=== PATIENT | female | born 1960 | race Caucasian/White ===

== ENCOUNTER 2019-02-15 15:41 | Emergency (ER) | payer BC ==
[2019-02-15] MEDS ORDERED: METHYLPREDNISOLONE 125 MG INJ ONE (16:05)
[2019-02-15] MEDS ORDERED: ALBUTEROL 2.5 MG/3 ML NEB SOL ONE (16:05)
[2019-02-15] MEDS ORDERED: IPRATROPIUM BROM 0.5MG/2.5ML ONE (16:06)
[2019-02-15 16:21] LABS: Absolute Monocytes 0.4 K/uL (0.1-1.3); Absolute Neutrophil 6.8 K/uL (1.8-8.0); Basophils % 0.6 % (0-1.3); Hematocrit 37.9 % (36.0-45.0); Lymphocytes % 12.1 % (15.3-44.8); MPV 7.6 fL (7.6-11.3); Monocytes % 4.1 % (3.3-12.3); RBC Red Blood Cell Count 3.93 M/uL (3.86-4.86)
[2019-02-15 16:42] LABS: ALT/SGPT 27 U/L (12-78); AST/SGOT 26 U/L (15-37); Albumin 3.7 g/dL (3.4-5.0); Alkaline Phosphatase 114 U/L (45-117); BUN Blood Urea Nitrogen 11 mg/dL (7-18); Bicarbonate 28 mmol/L (21-32); Bilirubin Direct 0.1 mg/dL (0-0.2); Bilirubin Total 0.4 mg/dL (0.2-1.0); Glucose Level 112 mg/dL (74-106); NT PRO-BNP 102 pg/mL (<125); Potassium 3.7 mmol/L (3.5-5.1); Protein, Total 8.3 g/dL (6.4-8.2); Sodium Level 141 mmol/L (136-145); Troponin (Emerg Dept Use Only) < 0.02 ng/mL (0.0-0.045)
[2019-02-15 16:44] LABS: Protime INR 1.1
[2019-02-15] MEDS ORDERED: Magnesium Sulfate 2gm IVPB 2 G/50 ML BAG IV ONE (17:22)
[2019-02-15] MEDS ORDERED: LEVALBUTEROL 1.25 MG/3 ML NEB ONE (17:31)
--- NOTE | 2019-02-15 18:58 | RAD REPORT ---
EXAM DESCRIPTION: Zuri Single View02/15/2019 4:24 pm CLINICAL HISTORY: sob COMPARISON: 2011 FINDINGS: The lungs appear clear of acute infiltrate. The heart is normal size IMPRESSION: No acute abnormalities displayed
--- NOTE | 2019-02-15 18:58 | RAD REPORT ---
EXAM DESCRIPTION: CT - Chest For Pe Angio - 02/15/2019 6:11 pm CLINICAL HISTORY: sob COMPARISON: None. TECHNIQUE: Dynamically enhanced axial 3 mm thick images of the chest were obtained during administra tion of <100> mL Isovue 370 IV contrast. Coronal and oblique reconstruction images were generated and reviewed. Exam utilizes a protocol for optimal evaluation of pulmonary arterial tree. Maximum intensity projections 3D imaging was utilized All CT scans are performed using dose optimization technique as appropriate and may include automated exposure control or mA/KV adjustment according to patient size. FINDINGS: The opacification of the pulmonary arteries is suboptimal. A central pulmonary embolus is not seen. A thoracic aortic aneurysm is not noted. A left subclavian stent is in place A pleural effusion is not seen. A pericardial effusion is not seen. A lung consolidation is not present. Fatty liver IMPRESSION: No gross evidence of a pulmonary embolus
--- NOTE | 2019-02-15 19:07 | ER ---
Nurse's Notes [facility] Name: Gene Cox Age: 59 yrs Sex: Female : 1960 Arrival Date: 02/15/2019 Time: 15:43 Bed 24 Private MD: Diagnosis: Unspecified asthma with (acute) exacerbation Presentation: 02/15 15:44 Presenting complaint: Patient states: SOB x 2 days, hx asthma has been taking breathing sv tx but no relief. Transition of care: patient was not received from another setting of care. Onset of symptoms was February 13, 2019. Care prior to arrival: None. 15:44 Method Of Arrival: Ambulatory sv 15:44 Acuity: CAIT 3 sv 16:13 Risk Assessment: Do you want to hurt yourself or someone else? Patient reports no rv desire to harm self or others. Initial Sepsis Screen: Does the patient meet any 2 criteria? No. Patient's initial sepsis screen is negative. Does the patient have a suspected source of infection? No. Patient's initial sepsis screen is negative. Triage Assessment: 16:14 General: Appears in no apparent distress. comfortable, Behavior is calm, cooperative. rv Respiratory: Reports shortness of breath at rest Onset: The symptoms/episode began/occurred yesterday, the patient has mild shortness of breath. Historical: - Allergies: 15:46 Amoxicillin; sv - PMHx: 15:46 Asthma; sv 15:46 High Cholesterol; sv - PSHx: 15:46 leg stents; fem-fem bypass; cardiac stent; sv - Immunization history:: Adult Immunizations up to date. - Social history:: Smoking status: unknown. - Ebola Screening: : Patient negative for fever greater than or equal to 101.5 degrees Fahrenheit, and additional compatible Ebola Virus Disease symptoms Patient denies exposure to infectious person Patient denies travel to an Ebola-affected area in the 21 days before illness onset. Screenin:13 Abuse screen: Denies threats or abuse. Denies injuries from another. Nutritional rv screening: No deficits noted. Tuberculosis screening: No symptoms or risk factors identified. Fall Risk None identified. Assessment: 16:12 General: Appears in no apparent distress. comfortable, Behavior is calm, cooperative. rv Pain: Complains of pain in chest. Neuro: Level of Consciousness is awake, alert, obeys commands, Oriented to person, place, time, situation. Cardiovascular: Rhythm is regular. Respiratory: Airway is patent Respiratory effort is even, Breath sounds with wheezes bilaterally. GI: No signs and/or symptoms were reported involving the gastrointestinal system. : No signs and/or symptoms were reported regarding the genitourinary system. EENT: No signs and/or symptoms were reported regarding the EENT system. Derm: Skin is intact. Musculoskeletal: No signs and/or symptoms reported regarding the musculoskeletal system. 17:06 Reassessment: Patient appears in no apparent distress at this time. No changes from la1 previously documented assessment. Patient and/or family updated on plan of care and expected duration. Pain level reassessed. Patient is alert, oriented x 3, equal unlabored respirations, skin warm/dry/pink. Vital Signs: 15:47 BP 149 / 75; Pulse 87; Resp 26; Temp 97; Pulse Ox 98% ; Weight 90.72 kg; Height 5 ft. 5 sv in. (165.10 cm); Pain 0/10; 17:06 BP 116 / 60; Pulse 95; Resp 20; Pulse Ox 98% on R/A; la1 17:30 BP 98 / 85 LA Sitting; Pulse 107; Resp 23 S; Pulse Ox 100% on Nebulizer Mask; rv 18:00 BP 118 / 70 LA Supine; Pulse 102; Resp 21 S; Pulse Ox 100% on R/A; rv 18:30 BP 115 / 61 LA Supine; Pulse 97; Resp 18 S; Pulse Ox 95% on R/A; rv 15:47 Body Mass Index 33.28 (90.72 kg, 165.10 cm) sv ED Course: 15:43 Patient arrived in ED. mr 15:45 Triage completed. sv 15:46 Arm band placed on. sv 15:48 Carlos Gonzales PA is PHCP. cp 15:48 Carlos Masters MD is Attending Physician. cp 15:48 PHCP role handed off by Carlos Gonzales PA jr8 15:48 Fritz Villela PA is PHCP. jr8 15:49 Carlos Gonzales PA is PHCP. cp 15:49 Eddie Rojas, ZEYNEP is Primary Nurse. la1 16:00 Inserted saline lock: 20 gauge in right antecubital area, using aseptic technique. rv Blood collected. 16:14 Patient has correct armband on for positive identification. Bed in low position. Call rv light in reach. Side rails up X 1. Adult w/ patient. Pulse ox on. NIBP on. 16:23 XRAY Chest (1 view) In Process Unspecified. EDMS 17:[address] via wheelchair. eh 18:12 CT Chest For PE Angio In Process Unspecified. EDMS 19:22 No provider procedures requiring assistance completed. IV discontinued, intact, la1 bleeding controlled, No redness/swelling at site. Pressure dressing applied. Administered Medications: 15:55 Drug: Albuterol - atroVENT (3:1) (2.5 mg - 0.5 mg) 3 ml Route: Nebulizer; rv 16:38 Follow up: Response: Marked relief of symptoms rv 16:00 Drug: SOLU-Medrol 80 mg Route: IVP; Site: right antecubital; rv 16:39 Follow up: Response: Marked relief of symptoms rv 17:17 Drug: Magnesium Sulfate 2 grams Route: IVPB; Infused Over: 1 hrs; Site: right la1 antecubital; 18:38 Follow up: IV Status: Completed infusion; IV Intake: 100ml rv 17:24 Drug: Xopenex 1.25 mg Route: Inhalation; la1 18:38 Follow up: Response: Marked relief of symptoms rv Intake: 18:38 IV: 100ml; Total: 100ml. rv Outcome: 19:06 Discharge ordered by . cp 19:22 Discharged to home ambulatory. la1 19:22 Condition: stable 19:22 Discharge instructions given to patient, Instructed on discharge instructions, follow up and referral plans. medication usage, Demonstrated understanding of instructions, follow-up care, medications, Prescriptions given X 3. 19:23 Patient left the ED. la1 Signatures: Dispatcher [employer] [facility] Denia Saxena RN Emily Carty Juan Melendez Fritz Villela PA PA jr8 Attema, Lee, RN RN Carlos Wade PA PA cp Vicente, Ronaldo RN RN rv
--- NOTE | 2019-02-15 19:07 | EDPHYS ---
Physician Documentation [facility] Name: Gene Cox Age: 59 yrs Sex: Female : 1960 Arrival Date: 02/15/2019 Time: 15:43 Bed 24 Private MD: ED Physician Carlos Masters HPI: 02/15 16:05 This 59 yrs old Female presents to ER via Ambulatory with complaints of cp Breathing Difficulty. 16:05 The patient has shortness of breath at rest. cp 16:05 Onset: The symptoms/episode began/occurred 2 day(s) ago. cp 16:05 Duration: The symptoms are continuous, and are steadily getting worse. The patient's cp shortness of breath is aggravated by light activity. Associated signs and symptoms: Pertinent positives: chest pain, non-productive cough, Pertinent negatives: diaphoresis, fever, hemoptysis. Severity of symptoms: in the emergency department the symptoms are unchanged despite home interventions. Historical: - Allergies: 15:46 Amoxicillin; sv - PMHx: 15:46 Asthma; sv 15:46 High Cholesterol; sv - PSHx: 15:46 leg stents; fem-fem bypass; cardiac stent; sv - Immunization history:: Adult Immunizations up to date. - Social history:: Smoking status: unknown. - Ebola Screening: : Patient negative for fever greater than or equal to 101.5 degrees Fahrenheit, and additional compatible Ebola Virus Disease symptoms Patient denies exposure to infectious person Patient denies travel to an Ebola-affected area in the 21 days before illness onset. ROS: 16:10 Constitutional: Negative for body aches, chills, fever, poor PO intake. cp 16:10 Eyes: Negative for injury, pain, redness, and discharge. cp 16:10 ENT: Negative for drainage from ear(s), ear pain, sore throat, difficulty swallowing, difficulty handling secretions. 16:10 Cardiovascular: Positive for chest pain, with cough, Negative for edema, palpitations. 16:10 Respiratory: Positive for cough, shortness of breath, at rest. Negative for hemoptysis. 16:10 Abdomen/GI: Negative for abdominal pain, vomiting, diarrhea, constipation. 16:10 Back: Negative for pain at rest, pain with movement. 16:10 : Negative for urinary symptoms. 16:10 Skin: Negative for rash. 16:10 Neuro: Negative for altered mental status, headache, syncope, weakness. 16:10 All other systems are negative. Exam: 16:25 Constitutional: The patient appears in no acute distress, alert, awake, cp non-diaphoretic, non-toxic, well developed, well nourished. 16:25 Head/Face: Normocephalic, atraumatic. cp 16:25 Eyes: Periorbital structures: appear normal, Conjunctiva: normal, no exudate, no injection, Sclera: no appreciated abnormality, Lids and lashes: appear normal, bilaterally. 16:25 ENT: External ear(s): are unremarkable, Ear canal(s): are normal, clear, TM's: are normal, no evidence of bulging, no erythema, Nose: is normal, Mouth: Lips: moist, Oral mucosa: pink and intact, moist, Posterior pharynx: is normal, airway is patent, no erythema, no exudate. 16:25 Neck: ROM/movement: is normal, is supple, without pain, no range of motions limitations, no meningismus, no nuchal rigidity. 16:25 Chest/axilla: Inspection: normal, Palpation: is normal, no crepitus, no tenderness. 16:25 Cardiovascular: Rate: normal, Rhythm: regular, Pulses: Pulses are 2+ in right radial artery and left radial artery. Edema: is not appreciated, JVD: is not appreciated. 16:25 Respiratory: the patient does not display signs of respiratory distress, Respirations: labored breathing, that is mild, intercostal retractions, are absent, splinting, is not noted, Breath sounds: decreased breath sounds, that are moderate, throughout, stridor, is not appreciated, wheezing: is not appreciated. 16:25 Abdomen/GI: Inspection: abdomen appears normal, Palpation: abdomen is soft and non-tender, in all quadrants. 16:25 Back: pain, is absent, ROM is normal. 16:25 Skin: no rash present. 16:25 Neuro: Orientation: to person, place, time \T\ situation. Mentation: is normal, Cerebellar function: is grossly normal, Motor: moves all fours, strength is normal, Sensation: is normal. 16:30 ECG was reviewed by the Attending Physician. cp Vital Signs: 15:47 BP 149 / 75; Pulse 87; Resp 26; Temp 97; Pulse Ox 98% ; Weight 90.72 kg; Height 5 ft. 5 sv in. (165.10 cm); Pain 0/10; 17:06 BP 116 / 60; Pulse 95; Resp 20; Pulse Ox 98% on R/A; la1 17:30 BP 98 / 85 LA Sitting; Pulse 107; Resp 23 S; Pulse Ox 100% on Nebulizer Mask; rv 18:00 BP 118 / 70 LA Supine; Pulse 102; Resp 21 S; Pulse Ox 100% on R/A; rv 18:30 BP 115 / 61 LA Supine; Pulse 97; Resp 18 S; Pulse Ox 95% on R/A; rv 15:47 Body Mass Index 33.28 (90.72 kg, 165.10 cm) sv MDM: 15:48 Patient medically screened. cp 16:00 Differential diagnosis: asthma, Bronchitis CHF exacerbation, Chronic Obstructive cp Pulmonary Disease Myocardial Infarction pneumonia, Pneumothorax pulmonary edema, Pulmonary Embolism Unstable Angina. 19:05 Antibiotic administration: Not indicated, the patient does not have an appreciated cp infiltrate. 19:05 Data reviewed: vital signs, nurses notes, lab test result(s), EKG, radiologic studies, cp CT scan, plain films. Test interpretation: by ED physician or midlevel provider: ECG, plain radiologic studies. 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 Response to treatment: the patient's symptoms have markedly improved after treatment, and as a result, I will discharge patient. 19:05 ED course: VSS. Symptoms improved with meds and breathing treatments. CTA chest cp negative for acute findings. will discharge to home. 02/15 15:54 Order name: Basic Metabolic Panel; Complete Time: 16:53 cp 02/15 18:47 Interpretation: Normal except: GLUC 112; GFR 56. cp 02/15 15:54 Order name: CBC with Diff; Complete Time: 16:36 cp 02/15 16:36 Interpretation: Normal except: MCV 96.3; KYRA% 79.2; LYM% 12.1. cp 02/15 15:54 Order name: LFT's; Complete Time: 16:53 cp 02/15 18:47 Interpretation: Normal except: TP 8.3; GLOB 4.6; A/G 0.8. 02/15 15:54 Order name: Magnesium; Complete Time: 16:53 cp 02/15 18:48 Interpretation: MG 2.0; Reviewed. 02/15 15:54 Order name: NT PRO-BNP; Complete Time: 16:53 cp 02/15 18:48 Interpretation: Within normal limits: NT PRO-BNP 102. 02/15 15:54 Order name: PT-INR; Complete Time: 16:55 cp 02/15 18:47 Interpretation: Abnormal: PT 12.9. 02/15 15:54 Order name: Troponin (emerg Dept Use Only); Complete Time: 16:53 cp 02/15 18:47 Interpretation: Within normal limits: TROPED < 0.02. 02/15 15:54 Order name: XRAY Chest (1 view); Complete Time: 19:00 02/15 19:00 Interpretation: Report review. 02/15 16:38 Order name: LAB Add On 02/15 16:38 Order name: D-Dimer; Complete Time: 17:06 cp 02/15 17:06 Interpretation: Reviewed. 02/15 17:06 Order name: CT Chest For PE Angio; Complete Time: 19:00 02/15 19:00 Interpretation: Report reviewed. 02/15 15:54 Order name: EKG; Complete Time: 15:55 02/15 15:54 Order name: Cardiac monitoring; Complete Time: 16:29 02/15 15:54 Order name: EKG - Nurse/Tech; Complete Time: 16:29 02/15 15:54 Order name: IV Saline Lock; Complete Time: 16:11 02/15 15:54 Order name: Labs collected and sent; Complete Time: 16:11 02/15 15:54 Order name: O2 Per Protocol; Complete Time: 16:11 02/15 15:54 Order name: O2 Sat Monitoring; Complete Time: 16:11 cp EC:30 Rate is 97 beats/min. Rhythm is regular. LA interval is normal. QRS interval is normal. cp QT interval is normal. Interpreted by me. Reviewed by me. Administered Medications: 15:55 Drug: Albuterol - atroVENT (3:1) (2.5 mg - 0.5 mg) 3 ml Route: Nebulizer; rv 16:38 Follow up: Response: Marked relief of symptoms rv 16:00 Drug: SOLU-Medrol 80 mg Route: IVP; Site: right antecubital; rv 16:39 Follow up: Response: Marked relief of symptoms rv 17:17 Drug: Magnesium Sulfate 2 grams Route: IVPB; Infused Over: 1 hrs; Site: right la1 antecubital; 18:38 Follow up: IV Status: Completed infusion; IV Intake: 100ml rv 17:24 Drug: Xopenex 1.25 mg Route: Inhalation; la1 18:38 Follow up: Response: Marked relief of symptoms rv Disposition: 02/16 07:20 Co-signature as Attending Physician, Carlos Masters MD I agree with the assessment and sharon plan of care. Disposition: 02/15/19 19:06 Discharged to Home. Impression: Unspecified asthma with (acute) exacerbation. - Condition is Stable. - Discharge Instructions: Asthma, Adult. - Prescriptions for prednisone 50 mg Oral tablet - take 1 tablet by ORAL route once daily for 5 days start morning of 02-16-2019; 5 tablet. Albuterol Sulfate 2.5 mg /3 mL (0.083 %) Inhalation Solution for Nebulization - inhale 1 unit by NEBULIZATION route every 8 hours As needed; 1 box. Albuterol Sulfate 90 mcg/actuation - inhale 1-2 puff by INHALATION route every 4-6 hours; 1 Inhaler. - Medication Reconciliation Form, Thank You Letter, Antibiotic Education, Prescription Opioid Use form. - Follow up: Private Physician; When: 2 - 3 days; Reason: Recheck today's complaints. - Problem is an acute exacerbation. - Symptoms have improved. Signatures: Dispatcher [employer] Denia Burton RN RN sv Anderson, Corey, MD MD cha Attema, Lee RN RN Carlos Wade PA PA cp Vicente, Ronaldo RN RN rv Corrections: (The following items were deleted from the chart) 02/15 19:23 19:06 02/15/2019 19:06 Discharged to Home. Impression: Unspecified asthma with (acute) la1 exacerbation. Condition is Stable. Forms are Medication Reconciliation Form, Thank You Letter, Antibiotic Education, Prescription Opioid Use. Follow up: Private Physician; When: 2 - 3 days; Reason: Recheck today's complaints. Problem is an acute exacerbation. Symptoms have improved. cp
[2019-02-15 19:30] VITALS: TEMP 97
[2019-02-15 19:37] VITALS: BP 115/61; O2SAT 95
--- NOTE | 2019-02-16 07:45 | EKG ---
Test Date: 2019-02-15 Test Time: 16:21:06 Radiation Safety Officer: [place] MEASUREMENT RESULTS: Intervals: Rate: 97 CA: 128 QRSD: 62 QT: 358 QTc: 454 [place]: P: 20 CA: 128 QRS: -5 T: 30 INTERPRETIVE STATEMENTS: Normal sinus rhythm Low voltage QRS Nonspecific ST and T wave abnormality Abnormal ECG Compared to ECG 10/20/2012 07:21:46 Low QRS voltage now present ST (T wave) deviation now present Short CA interval no longer present Electronically Signed On 02-16-19 07:44:01 CDT by Alec Zamarripa
== END 2019-02-15 19:23 | disposition home or self-care (01) ==
LOC: ER 15:41
DX: J45.901 Unspecified asthma with (acute) exacerbation (principal); E78.00 Pure hypercholesterolemia, unspecified; Z88.0 Allergy status to penicillin
CPT/HCPCS: 36415; 71045; 71275; 80048; 80076; 83735; 83880; 84484; 85025; 85379; 85610; 93005; 94640; 96365; 96375; 99285; J2930; J3475; Q9967